=== PATIENT | female | born 1940 | race Asian ===

== ENCOUNTER 2019-06-05 08:13 | Day surgery (SDC) | payer OTHER ==
[2019-06-04 12:36] VITALS: BMI 28.5
--- NOTE | 2019-06-05 08:09 | HP ---
Satellite H - Chief Complaint Chief Complaint: left shoulder pain, weakness History of Present Illness: left shoulder impingement, RTC tear, labral tear History Source: Patient Limitations to Obtaining History: No Limitations - Past Medical History Allergies/Adverse Reactions: Allergies Allergy/AdvReac Type Severity Reaction Status Date / Time Penicillins Allergy "BODY Verified 06/04/19 12:36 ACHES,HIVES" - Current Medications Current Medications: Home Medications Medication Instructions Recorded Atorvastatin Ca [Lipitor -] 20 mg PO DAILY 01/18/16 Acetaminophen [Tylenol Arthritis] 650 mg PO PRN PRN 06/04/19 Aspirin Coated [Ecotrin -] 81 mg PO DAILY 06/04/19 Cyclosporine [Restasis] 1 each OU BID 06/04/19 Dexlansoprazole [Dexilant] 60 mg PO DAILY 06/04/19 Famotidine [Pepcid] 40 mg PO HS 06/04/19 Levothyroxine [Synthroid -] 75 mcg PO DAILY 06/04/19 Metoclopramide HCl [Reglan] 5 mg PO TID 06/04/19 Satellite Physical Exam - Physical Examination General Appearance: Well Nourished ENT: Clear Lung: Clear to auscultation Heart: Regular rate & rhythm Breasts: Soft Abdomen: Soft Extremities: No edema Satellite Impression/Plan - Impression/Plan Impression: left shoulder impingement syndrome, RTC tear, Labral tear Operative Procedure: left shoulder arthroscopy, possible RTC and/or labral repair Date to be Performed: 06/05/19
[2019-06-05] MEDS ORDERED: DEXAMETHASONE SOD PHOSPHATE/PF 10 MG/ML SDV ONE (09:46)
[2019-06-05] MEDS ORDERED: ROPIVACAINE HCL 0.5% 30ML VIAL ONE (09:46)
[2019-06-05] MEDS ORDERED: MIDAZOLAM HCL 2 MG/2 ML SINGLE DOSE VIAL ONE ×2 (09:47)
[2019-06-05] MEDS ORDERED: ceFAZolin SODIUM 1 GM VIAL ONE (10:55)
[2019-06-05] MEDS ORDERED: DEXAMETHASONE SOD PHOSPHATE 4 MG/1 ML VIAL ONE (10:57)
[2019-06-05] MEDS ORDERED: ceFAZolin SODIUM 1 GM VIAL IVPB ONE (11:00)
[2019-06-05] MEDS ORDERED: PROPOFOL 20 ML ONE (11:56)
[2019-06-05] MEDS ORDERED: ONDANSETRON 4 MG/2 ML VIAL IVPUSH PRN (12:05)
[2019-06-05] MEDS ORDERED: oxyCODONE HCL 5 MG TABLET PO PRN (12:05)
[2019-06-05] MEDS ORDERED: LACTATED RINGERS SOLUTION 1,000 ML IV SCH (12:15)
[2019-06-05 16:01] VITALS: BP 140/65; PULSE 90; TEMP 98.1
--- NOTE | 2019-06-05 19:47 | OP ---
DATE OF OPERATION: 06/05/2019 PREOPERATIVE DIAGNOSES: Left shoulder impingement syndrome, possible labral tear, possible rotator cuff tear. POSTOPERATIVE DIAGNOSES: Left shoulder impingement syndrome and small partial rotator cuff. PROCEDURE: Left shoulder arthroscopy, subacromial decompression. SURGEON: Leonel Chapman MD ASSISTANTS: None. ANESTHESIA: Blanca Flowers, REF-CRN; Gala Maldonado MD. Anesthesia: Left interscalene block with MAC anesthesia. DRAINS: None. COMPLICATION: None. SPECIMEN: Laparoscopic shaving. DRAINS: None. BLOOD LOSS: None. BLOOD GIVEN: None. This patient is a 79-year-old female with a preoperative diagnosis of left shoulder impingement syndrome, possible labral tear, possible rotator cuff tear. After understanding the potential risks, complications, alternatives, and benefits to surgical versus nonsurgical treatment, the patient elected to undergo this procedure. The patient was brought to the operating room, peripheral IV placed, IV sedation given. Then 2 g of IV Ancef was given. A left interscalene block was performed. MAC anesthesia was induced. She was placed into the beach chair position with ample padding throughout. The left upper extremity was prepped and draped in a sterile fashion. The bony landmarks were marked out with a marking pen. A posterior portal was established. A glenohumeral arthroscopy was performed. The patient had some osteoarthritis of the glenohumeral joint. The biceps tendon was frayed. There was a partial undersurface tear of the rotator cuff, but there was no labral tear. Next, our attention was turned to the subacromial space. The patient had a tremendous amount of inflammatory bursitis. A lateral portal was established under direct visualization using a spinal needle and number 11 scalpel blade and a green cannula was introduced into the subacromial space. An extensive debridement/soft tissue bursectomy was performed with the ArthroCare wand. This revealed a large subacromial spur, which was taken down with the 5.5-mm oval bur fine-tuned in reverse and with the straight shaver. All bony debris was removed. The AC joint and the distal clavicle looked okay. We were able to do the soft tissue bursectomy from the top of the rotator cuff. When we moved the arm, the rotator cuff moved as a unit with the humerus. There was one very anterior partial-thickness top surface tear but there was no point that obviously communicated between the bottom surface tear and the top surface tear. The area was debrided but not repaired. The area was copiously irrigated and washed out. I then re-explored the area but still did not see any other more extensive rotator cuff tear. All instrumentation was removed. Excess saline was removed. The arthroscopy portals were closed with 3-0 nylon suture. The area was then washed and dried, covered with Aquacel dressing. She was placed into a sling. Total operative time was about 1 hour. There were no complications during the case. The patient tolerated the procedure quite well. She was stable throughout the case and was brought to the ambulatory recovery room in stable condition. LEONEL CHAPMAN M.D. [id number]
--- NOTE | 2019-06-07 16:34 | PATH ---
Surgical Pathology Report Patient Name: KINGA FITZGERALD Med. Rec. #: [id number] /Age/Gender: 1940 (Age: 79) / F Account: [id number] Location: [facility] Taken: 06/05/2019 Received: 06/05/2019 Reported: 06/07/2019 Physicians: Houston Varghese M.D. Specimen(s) Received LEFT SHOULDER SHAVINGS Clinical History Left shoulder tear Final Diagnosis SHOULDER SHAVINGS, LEFT, ARTHROSCOPY AND SUBACROMIAL DECOMPRESSION: FRAGMENTS OF BENIGN CARTILAGE, DENSE FIBROCONNECTIVE TISSUE, ADIPOSE TISSUE , BONE, AND SKELETAL MUSCLE. Electronically Signed Tanika Ken M.D. Gross Description Received in formalin, labeled "left shoulder shavings," is a 4.5 x 4.0 x 0.3 cm. aggregate of stoll-yellow soft tissue fragments. A financial services representative portion is submitted in one cassette. /06/06/2019 saudi/06/06/2019
== END 2019-06-05 15:30 | disposition home or self-care (01) ==
LOC: JASU-SURG 08:13
PROVIDERS: ATTEND Orthopaedic Surgery
PROC: 0RNK4ZZ Release Left Shoulder Joint, Percutaneous Endoscopic Approach (ICD-10-PCS; principal; 2019-06-05 10:30)
DX: M75.42 Impingement syndrome of left shoulder (principal); M75.102 Unspecified rotator cuff tear or rupture of left shoulder, not specified as traumatic
CPT/HCPCS: 88304-TC; 94760